=== PATIENT | male | born 1930 | race Caucasian/White ===

== ENCOUNTER 2018-02-09 15:35 | Inpatient (IN) | payer MEDICARE, OTHER ==
--- NOTE | 2018-02-09 15:41 | ER Document Report ---
ED Syncope and Near Syncope - General Stated Complaint: ALTERED MENTAL STATUS Time Seen by Provider: 02/09/18 15:40 Mode of Arrival: Medic Information source: Patient, Relative, Emergency Med Personnel TRAVEL OUTSIDE OF THE [place] IN LAST 30 DAYS: No - HPI Patient complains to provider of: Nearly fainting Episode witnessed (by whom): Yes - SPOUSE & DAUGHTER Single episoded occurred: 1530 Symptoms prior to episode: Lightheaded. No: Headache, Nausea/vomiting, Palpitations, Racing heart, Short of breath Position/Activity at time of episode: Standing Details of activity: WALKING, BECAME DIZZY & UNSTEADY, WALKING SIDEWAYS, HAD NEAR-SYNCOPE Quality of pain: No pain Context: Almost passed out, Collapsed, Confused after event, Recent immobilization - DROVE HERE FROM [place]. denies: Seizure activity observed Duration of LOC (min): 1 Injury location: None Current symptoms: Other - FEELS "TIRED," OTHERWISE NORMAL Similar symptoms previously: Yes - ONE PRIOR SIMILAR EPISODE, NEGATIVE W/U. Recently seen / treated by doctor: No - Related Data Allergies/Adverse Reactions: meperidine [From Demerol] Allergy (Verified 02/09/18 17:13) Past Medical History - General Information source: Patient, Relative - Social History Smoking Status: Never Smoker Cigarette use (# per day): No Chew tobacco use (# tins/day): No Frequency of alcohol use: None Drug Abuse: None Lives with: Spouse/Significant other - VISITING, FROM [facility]. Family History: None Patient has suicidal ideation: No Patient has homicidal ideation: No Physical Exam - Vital signs Interpretation: Hypertensive, Bradycardic. No: Tachycardic, Hypoxic, Tachypneic - General General appearance: Appears well, Alert In distress: None - HEENT Head: Normocephalic Eyes: Normal Conjunctiva: Normal Ears: Normal Nasal: Normal Mouth/Lips: Normal Mucous membranes: Normal Pharynx: Normal Neck: Normal - Respiratory Respiratory status: No respiratory distress Breath sounds: Normal - Cardiovascular Rhythm: Regular Heart sounds: Normal auscultation Murmur: No - Abdominal Inspection: Normal Distension: No distension - Back Back: Normal - Extremities General upper extremity: Normal inspection General lower extremity: Normal inspection - Neurological Neuro grossly intact: Yes Cognition: Normal Orientation: AAOx4 Andres Coma Scale Eye Opening: Spontaneous Andres Coma Scale Verbal: Oriented [place] Coma Scale Motor: Obeys Commands [place] Coma Scale Total: 15 Speech: Normal - PER SPOUSE Cranial nerves: Normal Cerebellar coordination: Normal Motor strength normal: LUE, RUE, LLE, RLE Additional motor exam normals: Equal vp securities, Plantar flexion Sensory: Normal - Psychological Associated symptoms: Normal affect, Normal mood - Skin Skin Temperature: Warm Skin Moisture: Dry Skin Color: Normal Skin Turgor: Elastic Course - Laboratory Result Diagrams: 02/09/18 15:53 02/09/18 15:53 Laboratory results interpreted by me: 02/09/18 02/09/18 15:53 15:53 RBC 3.28 L Hgb 11.1 L Hct 32.7 L MCV 100 H MCH 33.9 H RDW 16.1 H Glucose 111 H Creatine Kinase 47 L - Consults DR. DENNEY Time consulted: 19:25 Consulted provider: will come to ER Discharge - Discharge Clinical Impression: Confusion TIA (transient ischemic attack) Qualifiers: Transient cerebral ischemia type: unspecified Qualified Code(s): G45.9 - Transient cerebral ischemic attack, unspecified Condition: Good Disposition: ADMITTED OBSERVATION Admitting Provider: Hospitalist Unit Admitted: Telemetry
--- NOTE | 2018-02-09 17:05 | RADIOLOGY REPORT (SQ) ---
EXAM DESCRIPTION: CT HEAD WITHOUT COMPLETED DATE/TIME: 02/09/2018 4:53 pm REASON FOR STUDY: NEAR-SYNCOPE, CONFUSION, LEFT SIDE WEAKNESS COMPARISON: None. TECHNIQUE: Axial images acquired through the brain without intravenous contrast. Images reviewed wi th bone, brain and subdural windows. Additional sagittal and coronal reconstructions were generated. Images stored on PACS. All CT scanners at this facility use dose modulation, iterative reconstruction, and/or weight based d osing when appropriate to reduce radiation dose to as low as reasonably achievable (ALARA). [facility]: Dose Right [facility]: CareDose [facility]: Dose Right [facility]: Teradose 4D [facility]: Smart The Invisible Armor RADIATION DOSE: CT Rad equipment meets quality standard of care and radiation dose reduction techniq ues were employed. CTDIvol: 53.2 mGy. DLP: 1017 mGy-cm.mGy. LIMITATIONS: None. FINDINGS: VENTRICLES: Prominent. CEREBRUM: No masses. No hemorrhage. No midline shift. Areas of low density in the white matter mos t likely due to chronic micro-vascular ischemic change. No evidence for acute infarction. CEREBELLUM: No masses. No hemorrhage. No alteration of density. No evidence for acute infarction. EXTRAAXIAL SPACES: Age-related involutional change. No fluid collections. No masses. ORBITS AND GLOBE: No intra- or extraconal masses. Normal contour of globe without masses. CALVARIUM: No fracture. PARANASAL SINUSES: Mild mucosal thickening in the ethmoid air cells. SOFT TISSUES: No mass or hematoma. OTHER: No other significant finding. IMPRESSION: CHRONIC CHANGES OF ATROPHY AND MICROVASCULAR ISCHEMIA. NO ACUTE PROCESS. EVIDENCE OF ACUTE STROKE: NO. TECHNICAL DOCUMENTATION: JOB ID: [id number] Quality ID # [id number]: Final reports with documentation of one or more dose reduction techniques (e.g., Au tomated exposure control, adjustment of the mA and/or kV according to patient size, use of iterative reconstruction technique) 2010 [employer]- All Rights Reserved Reading location - IP/workstation name: [email or web address]
[2018-02-09 17:31] LABS: HEMATOCRIT 32.7 % (37.9-51.0); HEMOGLOBIN 11.1 g/dL (13.5-17.0); MEAN CORPUSCULAR HEMOGLOBIN 33.9 pg (27.0-33.4); MEAN CORPUSCULAR HGB CONC 33.9 g/dL (32.0-36.0); MEAN CORPUSCULAR VOLUME 100 fl (80-97); PLATELET COUNT 214 10^3/uL (150-450); RED BLOOD COUNT 3.28 10^6/uL (4.35-5.55); RED CELL DISTRIBUTION WIDTH 16.1 % (11.5-14.0); WHITE BLOOD COUNT 5.3 10^3/uL (4.0-10.5)
[2018-02-09 17:35] LABS: ALANINE AMINOTRANSFERASE 25 U/L (21-72); ALBUMIN 4.3 g/dL (3.5-5.0); ALKALINE PHOSPHATASE 67 U/L (38-126); ANION GAP 12 (5-19); ASPARTATE AMINO TRANSFERASE 26 U/L (17-59); BILIRUBIN,DIRECT 0.4 mg/dL (0.0-0.4); BILIRUBIN,TOTAL 0.5 mg/dL (0.2-1.3); BLOOD UREA NITROGEN 18 mg/dL (7-20); CALCIUM 9.6 mg/dL (8.4-10.2); CARBON DIOXIDE 26 mmol/L (22-30); CHLORIDE 100 mmol/L (98-107); CREATINE KINASE 47 U/L (55-170); GLUCOSE 111 mg/dL (75-110); POTASSIUM 4.6 mmol/L (3.6-5.0); SODIUM 137.6 mmol/L (137-145); TOTAL PROTEIN 7.3 g/dL (6.3-8.2)
[2018-02-09 17:47] LABS: CREATINE KINASE MB 0.71 ng/mL (<4.55)
[2018-02-09 17:48] LABS: TROPONIN I < 0.012 ng/mL
[2018-02-09 18:04] LABS: ABSOLUTE LYMPHOCYTES# (MANUAL) 1.9 10^3/uL (0.5-4.7); ABSOLUTE MONOCYTES # (MANUAL) 0.6 10^3/uL (0.1-1.4); ABSOLUTE NEUTROPHILS# (MANUAL) 2.7 10^3/uL (1.7-8.2); BASOPHILS % (MANUAL) 2 % (0-2); EOSINOPHILS % (MANUAL) 2 % (0-6); LYMPHOCYTES % (MANUAL) 35 % (13-45); MONOCYTES % (MANUAL) 11 % (3-13); SEGMENTED NEUTROPHILS % (MAN) 50 % (42-78); TOTAL CELLS COUNTED 100
--- NOTE | 2018-02-09 18:07 | RADIOLOGY REPORT (SQ) ---
EXAM DESCRIPTION: MRI HEAD WITHOUT COMPLETED DATE/TIME: 02/09/2018 5:46 pm REASON FOR STUDY: NEAR-SYNCOPE, CONFUSIOON, LEFT SIDE WEAKNESS COMPARISON: CT 02/09/2018 TECHNIQUE: Multiplanar imaging includes non-contrasted T1, T2, FLAIR, and diffusion with ADC map seq uences. Images stored on PACS. LIMITATIONS: None. FINDINGS: ANATOMY: No anomalies. Normal vascular flow voids. Pituitary fossa normal. CSF SPACES: Atrophy induced prominence of ventricles and CSF spaces. CEREBRUM: High signal intensity lesions scattered throughout the white matter on FLAIR imaging with d istribution suggesting micro-vascular ischemic changes. No evidence of hemorrhage, mass, or extraaxi al fluid collection. POSTERIOR FOSSA: No signal alteration. No hemorrhage. No edema, masses or mass effect. Internal sabra tory canals, cerebello-pontine angles, mastoids normal. DIFFUSION IMAGING: Negative for acute or sub-acute infarction. ORBITS: No masses. Globes normal. PARANASAL SINUSES: No fluid levels. Mucosa normal. OTHER: No other significant finding. IMPRESSION: ATROPHY AND CHRONIC MICRO-VASCULAR ISCHEMIC CHANGES. OTHERWISE NORMAL MRI OF THE BRAIN W ITHOUT INTRAVENOUS GADOLINIUM CONTRAST. EVIDENCE OF ACUTE STROKE: NO. TECHNICAL DOCUMENTATION: JOB ID: [id number] [employer]- All Rights Reserved Reading location - IP/workstation name: [email or web address]
[2018-02-09 18:10] LABS: ACANTHOCYTES 1+; ANISOCYTOSIS 1+; HOWELL-JOLLY BODIES PRESENT; OVALOCYTES SLIGHT; PLATELET COMMENT ADEQUATE; PLATELET GIANT PRESENT; PLATELET LARGE PRESENT; POIKILOCYTOSIS 2+; SCHISTOCYTES SLIGHT
[2018-02-09 18:42] LABS: APPEARANCE,URINE CLEAR; BILIRUBIN,URINE NEGATIVE (NEGATIVE); COLOR,URINE YELLOW; GLUCOSE, URINE NEGATIVE (NEGATIVE); KETONES,URINE NEGATIVE (NEGATIVE); LEUKOCYTE ESTERASE,URINE NEGATIVE (NEGATIVE); NITRITE,URINE NEGATIVE (NEGATIVE); PROTEIN,URINE NEGATIVE (NEGATIVE); UROBILINOGEN,URINE NEGATIVE mg/dL (<2.0)
[2018-02-09] MEDS ORDERED: ACETAMINOPHEN 325 MG TABLET PO PRN (19:49)
[2018-02-09] MEDS ORDERED: ONDANSETRON HCL INJ/PF 4 MG/2 ML SDV IV PRN (19:49)
--- NOTE | 2018-02-09 20:08 | PDOC H&P ---
History of Present Illness History of Present Illness: BRITTANY ALEMAN is a 87 year old male patient brought by EMS for syncopal attack. Yesterday patient drove up from [place] to [facility] to visit a friend and has been doing well until today when he started to have unsteady gait and walking sideways. He has associated incoherent slurred speech and left facial droop. All his symptoms subsided spontaneously by the time he arrived to ER. His blood works are unremarkable and both CT and MRI of the head are negative for intracranial process. Patient denies injury to his head, fever, chills, chest pain, palpitation or diaphoresis. Patient endorses nausea and an episode of vomiting. No diarrhea or abdominal pain. No seizure activity or incontinence of bowel or urine. Patient has history of long -standing generalized anxiety disorder. Past Medical History Cardiac Medical History: Reports: Hypertension Past Surgical History Past Surgical History: Reports: Orthopedic Surgery - knee Social History Lives with: Spouse/Significant other - VISITING, FROM [facility]. Smoking Status: Never Smoker Frequency of Alcohol Use: None Drugs: None - Advance Directive Resuscitation Status: Full Code Family History Family History: None Parental Family History Reviewed: Yes Children Family History Reviewed: Yes Sibling(s) Family History Reviewed.: Yes Medication/Allergy Allergies/Adverse Reactions: meperidine [From Demerol] Allergy (Verified 02/09/18 17:13) Review of Systems Constitutional: PRESENT: as per HPI Eyes: PRESENT: as per HPI Cardiovascular: PRESENT: as per HPI Respiratory: PRESENT: as per HPI Gastrointestinal: PRESENT: as per HPI Neurological: PRESENT: as per HPI Psychiatric: PRESENT: as per HPI Physical Exam Vital Signs: Intake & Output 02/08/18 02/09/18 02/10/18 06:59 06:59 06:59 Weight 79.54 kg General appearance: PRESENT: no acute distress Head exam: PRESENT: atraumatic, normocephalic Respiratory exam: PRESENT: clear to auscultation miguel. ABSENT: rales, rhonchi, wheezes Cardiovascular exam: PRESENT: RRR. ABSENT: diastolic murmur, rubs, systolic murmur GI/Abdominal exam: PRESENT: normal bowel sounds, soft. ABSENT: distended, guarding, mass, organolmegaly, rebound, tenderness Neurological exam: PRESENT: alert, awake, oriented to time, oriented to situation, reflexes normal Psychiatric exam: PRESENT: normal mood Results Laboratory Results: 02/09/18 15:53 02/09/18 15:53 02/09/18 02/09/18 02/09/18 15:53 15:53 18:03 WBC 5.3 RBC 3.28 L Hgb 11.1 L Hct 32.7 L MCV 100 H MCH 33.9 H MCHC 33.9 RDW 16.1 H Plt Count 214 Seg Neutrophils % Not Reportable Lymphocytes % Not Reportable Monocytes % Not Reportable Eosinophils % Not Reportable Basophils % Not Reportable Absolute Neutrophils Not Reportable Absolute Lymphocytes Not Reportable Absolute Monocytes Not Reportable Absolute Eosinophils Not Reportable Absolute Basophils Not Reportable Sodium 137.6 Potassium 4.6 Chloride 100 Carbon Dioxide 26 Anion Gap 12 BUN 18 Creatinine 1.05 Est GFR ( Amer) > 60 Est GFR (Non-Af Amer) > 60 Glucose 111 H Calcium 9.6 Total Bilirubin 0.5 AST 26 ALT 25 Alkaline Phosphatase 67 Total Protein 7.3 Albumin 4.3 Urine Color YELLOW Urine Appearance CLEAR Urine pH 7.0 Ur Specific [place] 1.010 Urine Protein NEGATIVE Urine Glucose (UA) NEGATIVE Urine Ketones NEGATIVE Urine Blood NEGATIVE Urine Nitrite NEGATIVE Ur Leukocyte Esterase NEGATIVE Urine WBC (Auto) 0 Urine RBC (Auto) 0 02/09/18 02/09/18 15:53 15:53 Creatine Kinase 47 L CK-MB (CK-2) 0.71 Troponin I < 0.012 Impressions: Head CT 02/09/18 16:13 IMPRESSION: CHRONIC CHANGES OF ATROPHY AND MICROVASCULAR ISCHEMIA. NO ACUTE PROCESS. EVIDENCE OF ACUTE STROKE: NO. Head MRI 02/09/18 16:19 IMPRESSION: ATROPHY AND CHRONIC MICRO-VASCULAR ISCHEMIC CHANGES. OTHERWISE NORMAL MRI OF THE BRAIN WITHOUT INTRAVENOUS GADOLINIUM CONTRAST. EVIDENCE OF ACUTE STROKE: NO. Assessment & Plan - Diagnosis (1) Near syncope Is this a current diagnosis for this admission?: Yes Plan: CT and MRI of the head are negative. I requested bilateral carotid Doppler and echocardiogram (2) TIA (transient ischemic attack) Qualifiers: Transient cerebral ischemia type: unspecified Qualified Code(s): G45.9 - Transient cerebral ischemic attack, unspecified Is this a current diagnosis for this admission?: Yes Plan: #1 (3) Hypertension Qualifiers: Hypertension type: essential hypertension Qualified Code(s): I10 - Essential (primary) hypertension Is this a current diagnosis for this admission?: Yes Plan: Continue his home medication - Time Critical Time spent with patient: 25-34 minutes
[2018-02-10] MEDS: METOPROLOL TARTRATE 50 MG TABLET PO SCH ×2 (00:21→09:10)
--- NOTE | 2018-02-10 00:45 | EKG REPORT ---
SEVERITY:- NORMAL ECG - SINUS RHYTHM : Confirmed by: Mónica Muro 10-Feb-2018 00:44:45
[2018-02-10 05:15] LABS: HEMOGLOBIN 10.6 g/dL (13.5-17.0); MEAN CORPUSCULAR HEMOGLOBIN 33.8 pg (27.0-33.4); MEAN CORPUSCULAR HGB CONC 34.2 g/dL (32.0-36.0); MEAN CORPUSCULAR VOLUME 99 fl (80-97); PLATELET COUNT 204 10^3/uL (150-450); RED BLOOD COUNT 3.14 10^6/uL (4.35-5.55); RED CELL DISTRIBUTION WIDTH 16.1 % (11.5-14.0); WHITE BLOOD COUNT 6.2 10^3/uL (4.0-10.5)
[2018-02-10 05:34] LABS: ALANINE AMINOTRANSFERASE 23 U/L (21-72); ALBUMIN 3.5 g/dL (3.5-5.0); ALKALINE PHOSPHATASE 62 U/L (38-126); ANION GAP 10 (5-19); ASPARTATE AMINO TRANSFERASE 29 U/L (17-59); BILIRUBIN,DIRECT 0.3 mg/dL (0.0-0.4); BILIRUBIN,TOTAL 0.5 mg/dL (0.2-1.3); BLOOD UREA NITROGEN 19 mg/dL (7-20); CALCIUM 9.2 mg/dL (8.4-10.2); CARBON DIOXIDE 28 mmol/L (22-30); CHLORIDE 101 mmol/L (98-107); CHOLESTEROL 144.41 mg/dL (0-200); GLUCOSE 99 mg/dL (75-110); POTASSIUM 4.9 mmol/L (3.6-5.0); SODIUM 139.2 mmol/L (137-145); TOTAL PROTEIN 6.3 g/dL (6.3-8.2); TRIGLYCERIDES 68 mg/dL (<150)
[2018-02-10 05:45] LABS: DIRECT LDL 72 mg/dL (<100)
[2018-02-10] MEDS: LANSOPRAZOLE 30 MG TAB.RAP.DR PO SCH (05:52)
[2018-02-10] MEDS: ENOXAPARIN SODIUM INJ 40 MG/0.4 ML DISP.SYRIN SUBCUT SCH (09:10)
[2018-02-10] MEDS ORDERED: ASPIRIN 81 MG TABLET, CHEWABLE PO SCH (10:00)
--- NOTE | 2018-02-10 14:16 | RADIOLOGY REPORT (SQ) ---
EXAM DESCRIPTION: CAROTID DOPPLER COMPLETED DATE/TIME: 02/10/2018 1:32 pm REASON FOR STUDY: syncope COMPARISON: MRI brain 02/09/2018 CT brain 02/09/2018 TECHNIQUE: Grayscale ultrasound, Doppler velocity and spectra, and color Doppler images acquired of the extra-cranial carotid and vertebral arteries. Images stored on PACS. LIMITATIONS: None. FINDINGS: RIGHT CAROTID CCA Velocities: Within normal limits. ICA Velocities Peak systolic 0.92 m/s. End diastolic 0.25 m/s. Proximal ICA/CCA peak systolic ratio 1.7. Spectra normal. No significant plaque. LEFT CAROTID CCA Velocities: Within normal limits. ICA Velocities Peak systolic 0.77 m/s. End diastolic 0.19 m/s. Proximal ICA/CCA peak systolic ratio 1.1. Spectra normal. No significant plaque. VERTEBRAL ARTERIES: Antegrade flow. Normal waveforms. SUBCLAVIAN ARTERIES: Not evaluated OTHER: No other significant finding. IMPRESSION: NO HEMODYNAMICALLY SIGNIFICANT STENOSIS. COMMENT: Quality ID #[id number]: Velocity criteria are extrapolated from the diameter data as defined by t he Society of Radiologists in Ultrasound Consensus Conference. Radiology 2003: 229; 340-346. TECHNICAL DOCUMENTATION: JOB ID: [id number] [employer]- All Rights Reserved Reading location - IP/workstation name: [email or web address]
--- NOTE | 2018-02-10 17:29 | XCELERA REPORT ---
[address] [address] Transthoracic Echocardiogram Report Name: BRITTANY ALEMAN Age: 87 yrs Gender: Male : 1930 Patient Status: Inpatient Patient Location: [address] [place], [place] [address]A Study Date: 02/10/2018 10:20 AM Height: 71 in Weight: 175 lb BSA: 2.0 m2 Procedure: A two-dimensional transthoracic echocardiogram with color flow and Doppler was performed. Study Quality: Fair. Reason For Study: SYNCOPE History: SYNCOPE. Ordering Physician: JOHN DENNEY Performed By: Ceci Gutierrez Interpretation Summary The left ventricle is normal in size. There is normal left ventricular wall thickness. Left ventricular systolic function is normal. LV EF is > than 65% Doppler measurements suggest normal left ventricular diastolic function The left ventricular wall motion is normal. There is no thrombus. The right atrium is normal. The left atrial size is normal. There is no evidence of mitral valve prolapse. There is no mitral valve stenosis. There is a trace amount of mitral regurgitation There is no aortic valve stenosis There is no LVOT obstruction. No aortic regurgitation is present. There is no tricuspid stenosis. There is a mild amount of tricuspid regurgitation There is mild pulmonary hypertension by echo RVSP is 33 mm of Hg , with RA mean of 10. There is no pericardial effusion. MMode/2D Measurements & Calculations RVDd: 4.2 cm LVIDd: 4.2 cm FS: 36.5 % Ao root diam: 3.4 cm IVSd: 1.0 cm LVIDs: 2.6 cm EDV(Teich): 77.2 ml LVPWd: 0.95 cm ESV(Teich): 25.7 ml Ao root area: 9.1 cm2 EF(Teich): 66.7 % LA dimension: 3.3 cm Doppler Measurements & Calculations MV E max pearl: MV P1/2t max pearl: Ao V2 max: LV V1 max P.1 cm/sec 69.6 cm/sec 136.6 cm/sec 3.4 mmHg MV A max pearl: MV P1/2t: 82.6 msec Ao max PG: LV V1 max: 63.7 cm/sec 7.5 mmHg 92.3 cm/sec MV E/A: 1.1 MVA(P1/2t): 2.7 cm2 MV dec slope: 246.6 cm/sec2 MV dec time: 0.30 sec PA V2 max: TR max pearl: 78.5 cm/sec 237.6 cm/sec PA max PG: TR max P.6 mmHg 2.5 mmHg Left Ventricle The left ventricle is normal in size. There is normal left ventricular wall thickness. Left ventricular systolic function is normal. LV EF is > than 65%. Doppler measurements suggest normal left ventricular diastolic function. The left ventricular wall motion is normal. There is no thrombus. There is no ventricular septal defect visualized. Right Ventricle The right ventricle is grossly normal size. The right ventricle is not well visualized secondary to technical limitations. Atria The right atrium is normal. The left atrial size is normal. The interatrial septum is intact with no evidence for an atrial septal defect. Mitral Valve There is no evidence of mitral valve prolapse. There is no vegetation seen on the mitral valve. There is no mitral valve stenosis. There is a trace amount of mitral regurgitation. Aortic Valve The aortic valve is trileaflet. The aortic valve opens well. There is no aortic valvular vegetation. There is no aortic valve stenosis. There is no LVOT obstruction. No aortic regurgitation is present. Tricuspid Valve There is no tricuspid stenosis. There is a mild amount of tricuspid regurgitation. There is mild pulmonary hypertension by echo. RVSP is 33 mm of Hg , with RA mean of 10. Pulmonic Valve There is no pulmonic valvular stenosis. There is no pulmonic valvular regurgitation. Great Vessels The aortic root is normal size. Effusions There is no pericardial effusion. : JOHN DENNEY > Genesis Suarez
[2018-02-10] MEDS ORDERED: LORAZEPAM 0.5 MG TABLET PO PRN (19:36)
[2018-02-10] MEDS ORDERED: HYDRALAZINE HCL INJ/PF 20 MG/1 ML SDV IV PRN (19:40)
--- NOTE | 2018-02-10 19:56 | PDOC PROGRESS REPORT ---
<CASTILLOYARITZA Fabio - Last Filed: 02/10/18 19:42> Subjective Progress Note for:: 02/10/18 Subjective:: BRTITANY ALEMAN is a 87 year old male who presented to the emergency department on 02/09/2018 for a syncopal episode. The patient states he remembers losing feeling in his R leg and then falling to the ground because he felt dizzy. Denies LOC or head trauma. His called EMS and, according to the patient, he had a difficult time answering their questions and following basic commands. The patient states he has experienced syncope or near-syncope many times over the last few years, and is currently being followed by his PMD in [place], [place]. He claims he has seen a neurologist in the past, but cannot remember his/her name. The patient states that his PMD believes his syncope is related to anxiety attacks. The patient was seen this morning on rounds, he is resting comfortably in bed. He has no complaints and states he would like to go home as soon as possible. The patient's speech is clear, he is able to answer all questions appropriately. The patient exhibits no focal deficits, equal strength in all 4 extremities. Denies ROUSE, blurry vision, parasthesia or weakness. Head CT and MRI were completed overnight. CT head is normal, MRI results are pending. Additionally, plan for carotid doppler and ECHOcardiogram today. Reason For Visit: NEAR SYNCOPE Physical Exam Vital Signs: Temp Pulse Resp BP Pulse Ox 97.5 F 50 L 16 143/65 H 100 02/10/18 16:00 02/10/18 16:00 02/10/18 16:00 02/10/18 16:00 02/10/18 16:00 Intake & Output 02/09/18 02/10/18 02/11/18 06:59 06:59 06:59 Intake Total 400 1603 Balance 400 1603 Weight 80.1 kg General appearance: PRESENT: no acute distress, thin Eye exam: PRESENT: conjunctiva pink, PERRLA Mouth exam: PRESENT: moist Neck exam: PRESENT: full ROM Respiratory exam: PRESENT: clear to auscultation miguel, symmetrical, unlabored Cardiovascular exam: PRESENT: +S1, +S2 Pulses: PRESENT: normal radial pulses, normal dorsalis pedis pul GI/Abdominal exam: PRESENT: soft. ABSENT: tenderness Rectal exam: PRESENT: deferred Extremities exam: PRESENT: full ROM Musculoskeletal exam: PRESENT: ambulatory, full ROM Neurological exam: PRESENT: alert, awake, oriented to person, oriented to place , oriented to time, oriented to situation Psychiatric exam: PRESENT: appropriate affect Skin exam: PRESENT: dry, intact, warm Results Laboratory Results: 02/10/18 04:50 02/10/18 04:50 02/10/18 02/10/18 04:50 04:50 WBC 6.2 RBC 3.14 L Hgb 10.6 L Hct 31.0 L MCV 99 H MCH 33.8 H MCHC 34.2 RDW 16.1 H Plt Count 204 Sodium 139.2 Potassium 4.9 Chloride 101 Carbon Dioxide 28 Anion Gap 10 BUN 19 Creatinine 1.02 Est GFR ( Amer) > 60 Est GFR (Non-Af Amer) > 60 Glucose 99 Calcium 9.2 Total Bilirubin 0.5 AST 29 ALT 23 Alkaline Phosphatase 62 Total Protein 6.3 Albumin 3.5 Triglycerides 68 Cholesterol 144.41 LDL Cholesterol Direct 72 VLDL Cholesterol 14.0 HDL Cholesterol 53 Impressions: Head CT 02/09/18 16:13 IMPRESSION: CHRONIC CHANGES OF ATROPHY AND MICROVASCULAR ISCHEMIA. NO ACUTE PROCESS. EVIDENCE OF ACUTE STROKE: NO. Head MRI 02/09/18 16:19 IMPRESSION: ATROPHY AND CHRONIC MICRO-VASCULAR ISCHEMIC CHANGES. OTHERWISE NORMAL MRI OF THE BRAIN WITHOUT INTRAVENOUS GADOLINIUM CONTRAST. EVIDENCE OF ACUTE STROKE: NO. Carotid Doppler Study 02/10/18 00:00 IMPRESSION: NO HEMODYNAMICALLY SIGNIFICANT STENOSIS. Status: Imported from PACS Assessment & Plan - Diagnosis (1) TIA (transient ischemic attack) QualifierTitle: Transient cerebral ischemia type: unspecified Qualified Code(s): G45.9 - Transient cerebral ischemic attack, unspecified Is this a current diagnosis for this admission?: Yes Plan: Patient reports episode of near syncope. The patient states R leg became numb and he fell to the ground. Denies LOC or head trauma. Additionally, he had difficulty answering questions and following commands. Admit to telemetry for TIA workup. CT head normal, MRI complete results pending Plan for Carotid Doppler Plan for ECHOcardiogram Aspirin and statin therapy The patient states he has been worked up for syncope by his PMD in [place], [place]. Will contact their office and request records. (2) Anxiety Is this a current diagnosis for this admission?: Yes Plan: The patient endorses a history of anxiety, he states that his PMD believes his history of syncope is secondary to panic attacks. The patient endorses recent relationship stressors. Of note, this episode of near-syncope happened immediately after driving from [place] to [place]. It is possible that his panic attacks are contributing to his symptoms, but plan to complete TIA workup Continue home dose of PRN 0.5mg Ativan PO (3) Hypertension QualifierTitle: Hypertension type: essential hypertension Qualified Code( s): I10 - Essential (primary) hypertension Is this a current diagnosis for this admission?: Yes Plan: The patient endorses a history of HTN Continue home dose Norvasc PRN IV Hydralazine for SBP>170 - Time Time Spent with patient: 15-24 minutes Medications reviewed and adjusted accordingly: Yes Anticipated discharge: Home - Inpatient Certification Based on my medical assessment, after consideration of the patient's comorbidities, presenting symptoms, or acuity I expect that the services needed warrant INPATIENT care.: Yes I certify that my determination is in accordance with my understanding of Medicare's requirements for reasonable and necessary INPATIENT services [42 CFR 412.3e].: Yes Medical Necessity: Need For Continuous Telemetry Monitoring - Plan Summary Plan Summary: Complete TIA workup. Reach out to PMD for medical records. Likely discharge home with follow up to his hometown provider. <SHANTIJANUARY C - Last Filed: 02/11/18 15:16> Subjective Reason For Visit: CVA Physical Exam Vital Signs: Temp Pulse Resp BP Pulse Ox 97.5 F 57 L 18 140/55 H 100 02/11/18 12:05 02/11/18 12:55 02/11/18 12:55 02/11/18 12:55 02/11/18 12:55 Intake & Output 02/10/18 02/11/18 02/12/18 06:59 06:59 06:59 Intake Total 400 2428 Output Total 500 Balance 400 1928 Weight 80.1 kg 79.2 kg Results Laboratory Results: 02/10/18 04:50 02/11/18 03:41 02/10/18 02/10/18 02/11/18 20:13 20:13 03:41 Sodium 133.7 L Potassium 4.4 Chloride 95 L Carbon Dioxide 27 Anion Gap 12 BUN 17 Creatinine 0.93 Est GFR ( Amer) > 60 Est GFR (Non-Af Amer) > 60 Glucose 94 Calcium 9.1 Phosphorus 3.5 3.7 Magnesium 1.7 1.7 C-Reactive Protein < 5.0 Vitamin B12 > 1000.0 H TSH 1.69 Impressions: Head CT 02/09/18 16:13 IMPRESSION: CHRONIC CHANGES OF ATROPHY AND MICROVASCULAR ISCHEMIA. NO ACUTE PROCESS. EVIDENCE OF ACUTE STROKE: NO. Head MRI 02/09/18 16:19 IMPRESSION: ATROPHY AND CHRONIC MICRO-VASCULAR ISCHEMIC CHANGES. OTHERWISE NORMAL MRI OF THE BRAIN WITHOUT INTRAVENOUS GADOLINIUM CONTRAST. EVIDENCE OF ACUTE STROKE: NO. Carotid Doppler Study 02/10/18 00:00 IMPRESSION: NO HEMODYNAMICALLY SIGNIFICANT STENOSIS. Assessment & Plan - Plan Summary Plan Summary: Co signing the note for Yaritza Verma NP.
[2018-02-10] MEDS ORDERED: CLOPIDOGREL BISULFATE 75 MG TABLET PO ONE (20:30)
[2018-02-10] MEDS ORDERED: EZETIMIBE 10 MG TABLET PO ONE (20:30)
[2018-02-10 20:44] LABS: PHOSPHORUS 3.5 mg/dL (2.5-4.5)
[2018-02-10 21:32] LABS: C-REACTIVE PROTEIN < 5.0 mg/L (<10.0)
[2018-02-11 05:08] LABS: ANION GAP 12 (5-19); BLOOD UREA NITROGEN 17 mg/dL (7-20); CALCIUM 9.1 mg/dL (8.4-10.2); CARBON DIOXIDE 27 mmol/L (22-30); CHLORIDE 95 mmol/L (98-107); GLUCOSE 94 mg/dL (75-110); PHOSPHORUS 3.7 mg/dL (2.5-4.5); POTASSIUM 4.4 mmol/L (3.6-5.0); SODIUM 133.7 mmol/L (137-145)
[2018-02-11] MEDS: LANSOPRAZOLE 30 MG TAB.RAP.DR PO SCH (06:00)
[2018-02-11] MEDS: EZETIMIBE 10 MG TABLET PO SCH (09:49)
[2018-02-11] MEDS: CLOPIDOGREL BISULFATE 75 MG TABLET PO SCH (09:49)
[2018-02-11] MEDS: ENOXAPARIN SODIUM INJ 40 MG/0.4 ML DISP.SYRIN SUBCUT SCH (09:50)
[2018-02-11] MEDS: AMLODIPINE BESYLATE 2.5 MG TABLET PO SCH (09:51)
[2018-02-11] MEDS ORDERED: AMLODIPINE BESYLATE 5 MG TABLET PO SCH (10:00)
[2018-02-11] MEDS ORDERED: MIDODRINE HCL 5 MG TABLET PO SCH (14:00)
[2018-02-11] MEDS ORDERED: NORMAL SALINE 1000 ML 1,000 ML IV PRN (15:23)
--- NOTE | 2018-02-11 15:39 | PDOC PROGRESS REPORT ---
<ZARINA DAVILA - Last Filed: 02/11/18 15:24> Subjective Progress Note for:: 02/11/18 Subjective:: The patient is an 87-year-old male with a past medical history of hypertension, anxiety, syncope who was admitted on 02/09/18 for TIA and syncopal episode. The patient is seen on rounds; he is found resting in bed comfortably on room air. He denies further episodes of lightheadedness or syncope. He does endorse anxiety and feels that his anxiety may contribute to his syncopal episodes. He requests to be discharged today and has no new questions or concerns. He denies fever, chills, body aches, dizziness, chest pain, palpitations, dyspnea, orthopnea, abdominal pain, nausea vomiting diarrhea. Medical records from his primary care provider's office were reviewed; patient had a similar episode resulting in admission in October 2017. Evaluation at that time included Head CT, Brain MRI/MRA, Carotid doppler, Echocaardiogram, and EEG. All of which were reported to be benign. Reason For Visit: CVA Physical Exam Vital Signs: Temp Pulse Resp BP Pulse Ox 97.5 F 57 L 18 140/55 H 100 02/11/18 12:05 02/11/18 12:55 02/11/18 12:55 02/11/18 12:55 02/11/18 12:55 Intake & Output 02/10/18 02/11/18 02/12/18 06:59 06:59 06:59 Intake Total 400 2428 Output Total 500 Balance 400 1928 Weight 80.1 kg 79.2 kg General appearance: PRESENT: no acute distress, cooperative, hard of hearing, well-developed, well-nourished Head exam: PRESENT: atraumatic, normocephalic Eye exam: PRESENT: conjunctiva pink, EOMI, PERRLA. ABSENT: nystagmus, scleral icterus Ear exam: PRESENT: normal external ear exam Mouth exam: PRESENT: moist, tongue midline Neck exam: ABSENT: carotid bruit, JVD, lymphadenopathy, thyromegaly Respiratory exam: PRESENT: clear to auscultation miguel, symmetrical, unlabored. ABSENT: rales, rhonchi, wheezes Cardiovascular exam: PRESENT: RRR, +S1 - Her affect he thinks, +S2. ABSENT: diastolic murmur, rubs, systolic murmur Pulses: PRESENT: normal dorsalis pedis pul Vascular exam: PRESENT: normal capillary refill GI/Abdominal exam: PRESENT: normal bowel sounds, soft. ABSENT: distended, guarding, mass, organolmegaly, rebound, tenderness Rectal exam: PRESENT: deferred Extremities exam: PRESENT: full ROM. ABSENT: calf tenderness, clubbing, pedal edema Neurological exam: PRESENT: alert, awake, oriented to person, oriented to place , oriented to time, oriented to situation, CN II-XII grossly intact. ABSENT: motor sensory deficit Psychiatric exam: PRESENT: appropriate affect, normal mood. ABSENT: homicidal ideation, suicidal ideation Skin exam: PRESENT: dry, intact, warm. ABSENT: cyanosis, rash Results Laboratory Results: 02/10/18 04:50 02/11/18 03:41 02/10/18 02/10/18 02/11/18 20:13 20:13 03:41 Sodium 133.7 L Potassium 4.4 Chloride 95 L Carbon Dioxide 27 Anion Gap 12 BUN 17 Creatinine 0.93 Est GFR ( Amer) > 60 Est GFR (Non-Af Amer) > 60 Glucose 94 Calcium 9.1 Phosphorus 3.5 3.7 Magnesium 1.7 1.7 C-Reactive Protein < 5.0 Vitamin B12 > 1000.0 H TSH 1.69 Impressions: Head CT 02/09/18 16:13 IMPRESSION: CHRONIC CHANGES OF ATROPHY AND MICROVASCULAR ISCHEMIA. NO ACUTE PROCESS. EVIDENCE OF ACUTE STROKE: NO. Head MRI 02/09/18 16:19 IMPRESSION: ATROPHY AND CHRONIC MICRO-VASCULAR ISCHEMIC CHANGES. OTHERWISE NORMAL MRI OF THE BRAIN WITHOUT INTRAVENOUS GADOLINIUM CONTRAST. EVIDENCE OF ACUTE STROKE: NO. Carotid Doppler Study 02/10/18 00:00 IMPRESSION: NO HEMODYNAMICALLY SIGNIFICANT STENOSIS. Assessment & Plan - Diagnosis (1) TIA (transient ischemic attack) QualifierTitle: Transient cerebral ischemia type: unspecified Qualified Code(s): G45.9 - Transient cerebral ischemic attack, unspecified Is this a current diagnosis for this admission?: Yes Plan: The patient was admitted for report of near-syncope that occurred with right leg numbness resulting in a fall to the ground. He denies injury related to his fall. He reports that he maintained alertness but had difficulty answering questions or following commands. He does report a history of similar events and was admitted in October 2017 to an outside hospital for the same. Symptoms had resolved prior to arrival in ED. CT Head reveals chronic microvascular changes; no evidence of acute CVA. Head MRI demonstrates the same. Carotid doppler is negative for hemodynamically significant stenosis. Echocardiogram is benign. EEG is pending. The patient has been admitted to the medical floor on continuous cardiac telemetry. He is empirically placed on Plavix. Continue home dose atorvastatin; lipid panel this morning was acceptable. The patient was noted to have orthostatic hypotension today which may have contributed to near syncopal event. (2) Orthostatic hypotension Is this a current diagnosis for this admission?: Yes Plan: The patient is noted to have orthostatic hypotension. We will evaluate for adrenal insufficiency with random cortisol level, IV cosyntropin, and follow-up cortisol levels. We will provide IV fluids. I did discuss with the patient that he may benefit from tilt table testing as an outpatient upon discharge. (3) Anxiety Is this a current diagnosis for this admission?: Yes Plan: The patient endorses frequent panic attacks that frequently occur prior to syncopal episodes. He may benefit from SSRI. We will continue his home dose Lorazepam. (4) Hypertension QualifierTitle: Hypertension type: essential hypertension Qualified Code( s): I10 - Essential (primary) hypertension Is this a current diagnosis for this admission?: Yes Plan: Blood pressures are acceptable at present; 148/68, with the exception of orthostasis. Continue home dose amlodipine; holding Benicar. - Time Time Spent with patient: 25-34 minutes Medications reviewed and adjusted accordingly: Yes Anticipated discharge: Home - Plan Summary Plan Summary: Plan of care discussed with Dr. Noe. <RODRIGO NOE C - Last Filed: 02/23/18 18:17> Subjective Reason For Visit: CVA Physical Exam Vital Signs: Temp Pulse Resp BP Pulse Ox 97.6 F 78 14 147/59 H 100 02/12/18 10:31 02/12/18 10:31 02/12/18 10:31 02/12/18 10:31 02/12/18 10:31 Results Laboratory Results: 02/12/18 06:26 02/12/18 06:26 Impressions: Head CT 02/09/18 16:13 IMPRESSION: CHRONIC CHANGES OF ATROPHY AND MICROVASCULAR ISCHEMIA. NO ACUTE PROCESS. EVIDENCE OF ACUTE STROKE: NO. Head MRI 02/09/18 16:19 IMPRESSION: ATROPHY AND CHRONIC MICRO-VASCULAR ISCHEMIC CHANGES. OTHERWISE NORMAL MRI OF THE BRAIN WITHOUT INTRAVENOUS GADOLINIUM CONTRAST. EVIDENCE OF ACUTE STROKE: NO. Carotid Doppler Study 02/10/18 00:00 IMPRESSION: NO HEMODYNAMICALLY SIGNIFICANT STENOSIS. Assessment & Plan - Plan Summary Plan Summary: Co-signing for Zarina Davila NP
[2018-02-11] MEDS ORDERED: COSYNTROPIN INJ 0.25 MG VIAL IV ONE (16:00)
[2018-02-12] MEDS: LANSOPRAZOLE 30 MG TAB.RAP.DR PO SCH (05:30)
[2018-02-12 07:27] LABS: HEMOGLOBIN 9.7 g/dL (13.5-17.0); MEAN CORPUSCULAR HEMOGLOBIN 34.1 pg (27.0-33.4); MEAN CORPUSCULAR HGB CONC 34.8 g/dL (32.0-36.0); MEAN CORPUSCULAR VOLUME 98 fl (80-97); PLATELET COUNT 171 10^3/uL (150-450); RED BLOOD COUNT 2.86 10^6/uL (4.35-5.55); RED CELL DISTRIBUTION WIDTH 16.2 % (11.5-14.0); WHITE BLOOD COUNT 6.5 10^3/uL (4.0-10.5)
[2018-02-12 07:56] LABS: ANION GAP 8 (5-19); BLOOD UREA NITROGEN 13 mg/dL (7-20); CALCIUM 8.9 mg/dL (8.4-10.2); CARBON DIOXIDE 26 mmol/L (22-30); CHLORIDE 103 mmol/L (98-107); GLUCOSE 88 mg/dL (75-110); POTASSIUM 3.9 mmol/L (3.6-5.0); SODIUM 136.5 mmol/L (137-145)
--- NOTE | 2018-02-12 08:17 | EEG PRO FEE REPORT ---
EEG INTERPRETATION PATIENT NAME: BRITTANY ALEMAN ROOM#: [id number] ORDER#: [id number] DATE OF STUDY: 02/11/2018 : 1930 REFERRING MD: RODRIGO ADHIKARI M.D. History This is an 87 year old man with a history of hypertension, anxiety, left kidney resection. This EEG was requested for an episode where the patient drove from [place], felt faint, vomited, passed out and woke up in the hospital. Medications Tylenol, Norvasc, Plavix, Lovenox, Zetia, Apresoline, Prevacid, Lorazepam EEG Interpretation This EEG was recorded in the awake, drowsy, and sleep states. The awake EEG is characterized by a well organized background with a well developed posterior dominant rhythm of 9 Hz. Drowsiness is characterized by a slowing of the background rhythms. Photic stimulation resulted in a minimal driving response. Hyperventilation was not performed. There was intermittent, predominantly left temporal theta slowing consistent with rhythmic temporal theta of drowsiness (a benign variant). During sleep, vertex waves and sleep spindles were seen in the midline head regions. The single channel EKG strip showed a bradyarrhythmia of approximately 48 beats per minute. EEG Classification 1. Bradyarrhythmia noted on EKG channel EEG Impression This EEG is within normal limits. However, the EKG strip showed a bradyarrhythmia. Cardiology assessment for the bradyarrhythmia is recommended. INTERPRETING PHYSICIAN: TAMARA MCALLISTER M.D. /: MTEFFT TT: [id number] ID: [id number] /: [id number] TD: [id number] JOB: [id number] cc:Millie ANAYA M.D. > MTDD
[2018-02-12] MEDS: EZETIMIBE 10 MG TABLET PO SCH (09:29)
[2018-02-12] MEDS: AMLODIPINE BESYLATE 2.5 MG TABLET PO SCH (09:30)
[2018-02-12] MEDS: ENOXAPARIN SODIUM INJ 40 MG/0.4 ML DISP.SYRIN SUBCUT SCH (09:31)
[2018-02-12] MEDS: CLOPIDOGREL BISULFATE 75 MG TABLET PO SCH (09:31)
[2018-02-12] MEDS ORDERED: HYDROCORTISONE 10 MG TABLET PO ONE (10:00)
[2018-02-12 10:33] VITALS: BP 147/59
[2018-02-12] MEDS ORDERED: HYDROCORTISONE 10 MG TABLET PO SCH ×2 (12:00→16:00)
--- NOTE | 2018-02-12 17:31 | PDOC DISCHARGE SUMMARY ---
General - Admit/Disc Date/PCP Admission Date/Primary Care Provider: 02/09/18 20:05 Discharge Date: 02/12/18 - Discharge Diagnosis (1) TIA (transient ischemic attack) Is this a current diagnosis for this admission?: Yes Summary: The patient was admitted for report of near syncope followed by right-sided weakness, expressive aphasia, and confusion that resolved spontaneously prior to arrival in the emergency department. CT of the head reveals chronic microvascular changes; no evidence of acute CVA. Head MRI demonstrates the same. Carotid doppler is negative for hemodynamically significant stenosis. Echocardiogram is benign. EEG revealed intermittent left temporal theta slowing. Lipid panel was acceptable. EKG demonstrated normal sinus rhythm. On continuous cardiac telemetry, the patient was noted to have brief episodes of sinus bradycardia to a heart rate of 47. The patient denied symptoms of dizziness, lightheadedness, or palpitation during these episodes. At time of discharge, the patient is in stable condition, tolerating a regular diet, maintaining oxygen saturations on room air, and ambulatory without difficulty. He is advised to begin a daily aspirin regimen and continue his home dose statin therapy. He is further encouraged follow-up with his primary care provider to discuss further evaluation such as a cardiology referral for consideration of a pacemaker, event monitor, or tilt table test. (2) Orthostatic hypotension Is this a current diagnosis for this admission?: Yes Summary: The patient was noted to have orthostatic hypotension even following IV fluid bolus 2 L. He was evaluated for adrenal insufficiency and found to have a random cortisol of 6.3, stress cortisol of 19.0 (following IV administration of cortrosyn), and low AM cortisol level of 2.53. He was educated on, and provided handouts on, orthostatic hypotension and lab work indicating mild adrenal insufficiency. He was placed on p.o. hydrocortisone. He is instructed to follow-up with his primary care provider upon return to his home residence in [place]. He is provided a prescription for hydrocortison 10 mg qAM, 5 mg at noon, and 2.5 mg at 1600. He is instructed to continue medication until otherwise directed by his primary care provider. (3) Anxiety Is this a current diagnosis for this admission?: Yes Summary: Chronic anxiety; home dose lorazepam is continued. The patient was also placed on Paxil for generalized anxiety disorder. The patient's anxiety may be contributing to his syncopal and TIA symptoms. We did discuss this in detail. The patient is encouraged to follow-up with his primary care provider for close follow-up and management of his anxiety disorder. (4) Hypertension Is this a current diagnosis for this admission?: Yes Summary: The patient's home medication regimen was continued. Blood pressures are slightly elevated (150/72) though acceptable for the patient's age given his history of multiple syncopal events. - Additional Information Resuscitation Status: Full Code Discharge Diet: Regular Discharge Activity: Activity As Tolerated, Balance Activity w/Rest Prescriptions: Aspirin [Adult Low Dose Aspirin EC] 81 mg PO DAILY #90 tablet. Hydrocortisone [Cortef 10 mg Tablet] 10 mg PO Q6AM #30 tablet Hydrocortisone [Cortef 10 mg Tablet] 2.5 mg PO DAILY@1600 #30 tablet Hydrocortisone [Cortef 10 mg Tablet] 5 mg PO NOON #30 tablet Paroxetine HCl [Paxil] 10 mg PO DAILY #30 tablet Home Medications: Amlodipine Besylate [Norvasc 5 mg Tablet] 2.5 mg PO DAILY 02/10/18 Ezetimibe [Zetia 10 mg Tablet] 10 mg PO DAILY 02/10/18 Lorazepam [Ativan 0.5 mg Tablet] 0.5 mg PO DAILYP PRN 02/10/18 Olmesartan Medoxomil [Benicar] 10 mg PO Q12 02/10/18 Omeprazole 20 mg PO DAILY 02/10/18 Acetaminophen [Tylenol 325 mg Tablet] 650 mg PO Q4HP PRN tablet 02/11/18 Aspirin [Adult Low Dose Aspirin EC] 81 mg PO DAILY #90 tablet. 02/11/18 Paroxetine HCl [Paxil] 10 mg PO DAILY #30 tablet 02/11/18 Hydrocortisone [Cortef 10 mg Tablet] 2.5 mg PO DAILY@1600 #30 tablet 02/12/18 Hydrocortisone [Cortef 10 mg Tablet] 5 mg PO NOON #30 tablet 02/12/18 Hydrocortisone [Cortef 10 mg Tablet] 10 mg PO Q6AM #30 tablet 02/12/18 History of Present Illness History of Present Illness: Per H&P by Dr. Irwin: BRITTANY ALEMAN is a 87 year old male patient brought by EMS for syncopal attack. Yesterday patient drove up from [place] to [facility] to visit a friend and has been doing well until today when he started to have unsteady gait and walking sideways. He has associated incoherent slurred speech and left facial droop. All his symptoms subsided spontaneously by the time he arrived to ER. His blood works are unremarkable and both CT and MRI of the head are negative for intracranial process. Patient denies injury to his head, fever, chills, chest pain, palpitation or diaphoresis. Patient endorses nausea and an episode of vomiting. No diarrhea or abdominal pain. No seizure activity or incontinence of bowel or urine. Patient has history of long-standing generalized anxiety disorder. Physical Exam Vital Signs: Temp Pulse Resp BP Pulse Ox 97.6 F 78 14 150/72 H 100 02/12/18 09:33 02/12/18 09:33 02/12/18 07:44 02/12/18 09:33 02/12/18 09:33 Intake & Output 02/11/18 02/12/18 02/13/18 06:59 06:59 06:59 Intake Total 2428 4098 Output Total 500 550 Balance 1928 3548 Weight 79.2 kg 81.2 kg General appearance: PRESENT: no acute distress, cooperative, well-developed, well-nourished Head exam: PRESENT: atraumatic, normocephalic Eye exam: PRESENT: conjunctiva pink, EOMI, PERRLA. ABSENT: scleral icterus Ear exam: PRESENT: normal external ear exam Mouth exam: PRESENT: moist, tongue midline Neck exam: ABSENT: carotid bruit, JVD, lymphadenopathy, thyromegaly Respiratory exam: PRESENT: clear to auscultation miguel, symmetrical, unlabored. ABSENT: rales, rhonchi, wheezes Cardiovascular exam: PRESENT: RRR, +S1, +S2. ABSENT: diastolic murmur, rubs, systolic murmur Pulses: PRESENT: normal dorsalis pedis pul Vascular exam: PRESENT: normal capillary refill GI/Abdominal exam: PRESENT: normal bowel sounds, soft. ABSENT: distended, guarding, mass, organolmegaly, rebound, tenderness Rectal exam: PRESENT: deferred Extremities exam: PRESENT: full ROM. ABSENT: calf tenderness, clubbing, pedal edema Neurological exam: PRESENT: alert, awake, oriented to person, oriented to place , oriented to time, oriented to situation, CN II-XII grossly intact. ABSENT: motor sensory deficit Psychiatric exam: PRESENT: anxious, appropriate affect. ABSENT: homicidal ideation, suicidal ideation Skin exam: PRESENT: dry, intact, warm. ABSENT: cyanosis, rash Results Laboratory Results: 02/12/18 06:26 02/12/18 06:26 02/12/18 02/12/18 02/12/18 06:26 06:26 06:26 WBC 6.5 RBC 2.86 L Hgb 9.7 L Hct 28.0 L MCV 98 H MCH 34.1 H MCHC 34.8 RDW 16.2 H Plt Count 171 Sodium 136.5 L Potassium 3.9 Chloride 103 Carbon Dioxide 26 Anion Gap 8 BUN 13 Creatinine 0.82 Est GFR ( Amer) > 60 Est GFR (Non-Af Amer) > 60 Glucose 88 Calcium 8.9 TSH 1.49 Impressions: Head CT 02/09/18 16:13 IMPRESSION: CHRONIC CHANGES OF ATROPHY AND MICROVASCULAR ISCHEMIA. NO ACUTE PROCESS. EVIDENCE OF ACUTE STROKE: NO. Head MRI 02/09/18 16:19 IMPRESSION: ATROPHY AND CHRONIC MICRO-VASCULAR ISCHEMIC CHANGES. OTHERWISE NORMAL MRI OF THE BRAIN WITHOUT INTRAVENOUS GADOLINIUM CONTRAST. EVIDENCE OF ACUTE STROKE: NO. Carotid Doppler Study 02/10/18 00:00 IMPRESSION: NO HEMODYNAMICALLY SIGNIFICANT STENOSIS. Qualifiers - * PATIENT BEING DISCHARGED WITH ANY OF THE FOLLOWING DIAGNOSIS: No Plan Discharge Plan: Discharge to home with self-care. Follow-up with primary care provider within 1 week.
[2018-02-13] MEDS ORDERED: HYDROCORTISONE 10 MG TABLET PO SCH (06:00)
== END 2018-02-12 11:56 | disposition home or self-care (01) | DRG 69 ==
LOC: ER 15:35 → EH 19:49 → INTOOBSV 20:05 → OBSVTOIN 20:05 → UNDOADMOB 20:05 → 4N 22:44 → EH 22:44 → OBSVTOIN 02-10 19:52 → UNDODISIN 02-12 11:56
PROVIDERS: ADMIT Internal Medicine; ATTEND Internal Medicine
DX: G45.9 Transient cerebral ischemic attack, unspecified (principal); G81.91 Hemiplegia, unspecified affecting right dominant side; R47.01 Aphasia; I67.9 Cerebrovascular disease, unspecified; I95.1 Orthostatic hypotension; I10 Essential (primary) hypertension; R47.81 Slurred speech; F41.1 Generalized anxiety disorder; R00.1 Bradycardia, unspecified; Z88.6 Allergy status to analgesic agent
CPT/HCPCS: 36415; 70450; 70551; 80048; 80053; 80061; 81001; 82533; 82550; 82553; 82607; 83036; 83735; 84100; 84443; 84484; 85025; 85027; 86140; 86592; 86701; 93005; 93010; 93306; 93880; 95819; 99285; G0378; G8978-GP; G8979-GP; J0834; J1650; J3490